=== PATIENT | male | born 1985 | race Two or more races ===

== ENCOUNTER → 2019-01-11 | Outpatient (CLI) | payer OTHER | END | disposition home or self-care (01) | LOC: CFH 08:55 | PROVIDERS: ATTEND Orthopaedic Surgery | DX: S43.432A Superior glenoid labrum lesion of left shoulder, initial encounter (principal); S43.431A Superior glenoid labrum lesion of right shoulder, initial encounter; X58.XXXA Exposure to other specified factors, initial encounter; Y93.89 Activity, other specified; Y92.89 Other specified places as the place of occurrence of the external cause; Y99.8 Other external cause status ==

== ENCOUNTER 2019-02-17 10:22 | Day surgery (SDC) | payer OTHER ==
[~2019-02-17] VITALS: Ht 188 cm; Wt 100.8 kg
[~2019-02-17 10:22] MED LIST: LIDOCAINE 1%-EPI 1:100K, 20ML ONE; NEOSPORIN OINT, 15GM ONE; No meds per pt.
[2019-02-17 11:19] VITALS: BP 115/80
[2019-02-17] MEDS ORDERED: FENTANYL PF 100 MCG/2ML ONE (13:31)
[2019-02-17] MEDS ORDERED: MIDAZOLAM 1 MG/ML, 2ML ONE (13:31)
[2019-02-17] MEDS ORDERED: LIDOCAINE 1%-EPI 1:100K, 20ML INFIL ONE (14:07)
[2019-02-17] MEDS ORDERED: CLINDAMYCIN 150 MG/ML, 6ML ONE (14:09)
[2019-02-17] MEDS ORDERED: OXYcodone 5 MG/5 ML ORAL.SOL UDC PO PRN (14:30)
[2019-02-17] MEDS ORDERED: MEPERIDINE/PF 25MG/0.5ML IVPush PRN (14:30)
[2019-02-17] MEDS ORDERED: PROMETHAZINE 25 MG/ML, 1ML IV PRN (14:30)
[2019-02-17] MEDS ORDERED: ONDANSETRON 2MG/ML, 2ML IV PRN (14:30)
[2019-02-17] MEDS ORDERED: HYDROmorphone 2 MG/ML, 1ML IVPush PRN (14:30)
[2019-02-17] MEDS ORDERED: ONDANSETRON ODT 8 MG PO PRN (14:30)
[2019-02-17] MEDS ORDERED: FENTANYL PF 100 MCG/2ML IV PRN (14:30)
[2019-02-17] MEDS ORDERED: DIAZEPAM 5 MG/ML, 2ML IVPush PRN (14:30)
[2019-02-17] MEDS ORDERED: ACETAMINOPHEN 325 MG TABLET PO PRN (14:30)
[2019-02-17] MEDS ORDERED: SUCCINYLCHOLINE 20 MG/ML, 10ML ONE (14:38)
[2019-02-17] MEDS ORDERED: NEOSTIGMINE 1 MG/ML, 10ML ONE (14:38)
[2019-02-17] MEDS ORDERED: ROCURONIUM 10MG/ML,5ML ONE (14:38)
[2019-02-17] MEDS ORDERED: PROPOFOL 10 MG/ML, 20ML ONE (14:38)
[2019-02-17] MEDS ORDERED: ONDANSETRON 2MG/ML, 2ML ONE (14:38)
[2019-02-17] MEDS ORDERED: GLYCOPYRROLATE 0.2MG/1ML, 5ML ONE (14:38)
[2019-02-17] MEDS ORDERED: CEFAZOLIN 1,000 MG ONE (14:38)
[2019-02-17] MEDS ORDERED: DEXAMETHASONE 4 MG/ML, 1ML ONE (14:38)
[2019-02-17] MEDS ORDERED: OXYcodone 5 MG/5 ML ORAL.SOL UDC ONE (15:50)
[2019-02-17] MEDS ORDERED: MEPERIDINE/PF 25MG/ML,1ML ONE (15:50)
== END 2019-02-17 17:35 | disposition home or self-care (01) ==
LOC: OUT 10:22
PROVIDERS: ATTEND Orthopaedic Surgery
DX: S43.432A Superior glenoid labrum lesion of left shoulder, initial encounter (principal); S46.012A Strain of muscle(s) and tendon(s) of the rotator cuff of left shoulder, initial encounter; M75.22 Bicipital tendinitis, left shoulder; M75.42 Impingement syndrome of left shoulder; M65.812 Other synovitis and tenosynovitis, left shoulder; M75.52 Bursitis of left shoulder; X58.XXXA Exposure to other specified factors, initial encounter; Y93.89 Activity, other specified; Y92.89 Other specified places as the place of occurrence of the external cause; Y99.8 Other external cause status; Z88.1 Allergy status to other antibiotic agents; Z88.0 Allergy status to penicillin
CPT/HCPCS: 24340; 29823; 29826; 29827; 64415; C1713; J0330; J0690; J1100; J2175; J2250; J2405; J2704; J2710; J3010; J3490

== ENCOUNTER → 2020-10-25 | Outpatient (CLI) | payer OTHER ==
[~2020-10-25] MED LIST changes: +ALBU2.5V11 NEB; +ALBU8.5H8 INH; +ATOR10TA9 PO; +IBUP-1902 PO; -LIDOCAINE 1%-EPI 1:100K, 20ML ONE; -NEOSPORIN OINT, 15GM ONE
== END | disposition home or self-care (01) ==
LOC: STAR 07:55
PROVIDERS: ATTEND Orthopaedic Surgery
DX: Z20.828 Contact with and (suspected) exposure to other viral communicable diseases (principal); M25.541 Pain in joints of right hand
CPT/HCPCS: 87635

== ENCOUNTER 2020-10-31 05:26 | Day surgery (SDC) | payer OTHER ==
[~2020-10-31] VITALS: Ht 188 cm; Wt 120.0 kg
[2020-10-31] MEDS ORDERED: CHLORHEXIDINE 15 ML UDC MM ONE (06:30)
[2020-10-31] MEDS ORDERED: LACTATED RINGERS 1,000 ML IV SCH (06:30)
[2020-10-31] MEDS ORDERED: LIDOCAINE-MPF 1%, 2ML INFIL ONE (06:30)
[2020-10-31] MEDS ORDERED: BUPIVACAINE/PF-EPI 0.5% 1:200K ONE (06:34)
[2020-10-31] MEDS ORDERED: FENTANYL PF 250 MCG/5ML ONE (06:55)
[2020-10-31] MEDS ORDERED: PROPOFOL 10 MG/ML, 20ML ONE (06:55)
[2020-10-31] MEDS ORDERED: MIDAZOLAM 1 MG/ML, 5ML ONE (06:55)
[2020-10-31] MEDS ORDERED: LIDOCAINE-MPF 2% ,5ML ONE (06:55)
[2020-10-31] MEDS ORDERED: MAGNESIUM SULFATE 1 GM/2 ML ONE (07:09)
[2020-10-31] MEDS ORDERED: LABETALOL 5MG/ML, 20ML ONE (07:09)
[2020-10-31] MEDS ORDERED: LIDOCAINE 1%, 20ML ONE (07:10)
[2020-10-31] MEDS ORDERED: LIDOCAINE/PF 1%, 30ML ONE (07:10)
[2020-10-31] MEDS ORDERED: ROCURONIUM 10 MG/ML,10ML ONE (07:15)
[2020-10-31] MEDS ORDERED: GLYCOPYRROLATE 0.2MG/1ML, 5ML ONE (07:15)
[2020-10-31] MEDS ORDERED: DEXAMETHASONE 4 MG/ML, 1ML ONE (07:15)
[2020-10-31] MEDS ORDERED: CLINDAMYCIN 150 MG/ML, 6ML ONE (07:25)
[2020-10-31] MEDS ORDERED: ALBUTEROL SULFATE 2.5 MG/3 ML NPPB PRN (08:30)
[2020-10-31] MEDS ORDERED: MEPERIDINE/PF 25MG/0.5ML IVPush PRN (08:30)
[2020-10-31] MEDS ORDERED: HYDROcodone/APAP 7.5-325MG/15ML UDC PO PRN (08:30)
[2020-10-31] MEDS ORDERED: METOCLOPRAMIDE 5 MG/ML, 2ML IVPush PRN (08:30)
[2020-10-31] MEDS ORDERED: hydrALAzine 20 MG/ML, 1ML IV PRN (08:30)
[2020-10-31] MEDS ORDERED: LORazepam 2 MG/ML, 1ML IVPush PRN (08:30)
[2020-10-31] MEDS ORDERED: EPHEDRINE 50 MG/ML, 1ML IM PRN (08:30)
[2020-10-31] MEDS ORDERED: FENTANYL PF 100 MCG/2ML IV PRN (08:30)
[2020-10-31] MEDS ORDERED: MIDAZOLAM 1 MG/ML, 2ML IV PRN (08:30)
[2020-10-31] MEDS ORDERED: ONDANSETRON 2MG/ML, 2ML IVPush PRN (08:30)
[2020-10-31] MEDS ORDERED: HYDROmorphone 1 MG/ML, 1ML INJ IVPush PRN (08:30)
[2020-10-31] MEDS ORDERED: METHOCARBAMOL 1,000 MG in DEXTROSE 5% 100 ML IV PRN (08:30)
[2020-10-31] MEDS ORDERED: EPHEDRINE 50 MG/ML, 1ML IVPush PRN (08:30)
[2020-10-31] MEDS ORDERED: DIAZEPAM 5 MG/ML, 2ML IVPush PRN (08:30)
[2020-10-31] MEDS ORDERED: LABETALOL 5MG/ML, 20ML IV PRN (08:30)
[2020-10-31] MEDS ORDERED: DIPHENHYDRAMINE 50 MG/ML, 1ML IVPush PRN (08:30)
[2020-10-31] MEDS ORDERED: HALOPERIDOL 5 MG/ML IV PRN (08:30)
[2020-10-31] MEDS ORDERED: OXYcodone 5 MG/5 ML ORAL.SOL UDC PO PRN (08:30)
== END 2020-10-31 11:25 | disposition home or self-care (01) ==
LOC: OR 05:26 → OUT 11:25
PROVIDERS: ATTEND Orthopaedic Surgery
DX: M25.731 Osteophyte, right wrist (principal); M65.4 Radial styloid tenosynovitis [de Quervain]; M19.041 Primary osteoarthritis, right hand; J45.909 Unspecified asthma, uncomplicated; E66.9 Obesity, unspecified; Z79.1 Long term (current) use of non-steroidal anti-inflammatories (NSAID); Z79.899 Other long term (current) drug therapy; Z88.0 Allergy status to penicillin; Z88.2 Allergy status to sulfonamides
CPT/HCPCS: 25000; 26210; J1100; J2250; J2704; J3010; J3475; J7120

== ENCOUNTER → 2021-03-19 | Outpatient (CLI) | payer OTHER | END | disposition home or self-care (01) | LOC: RAD 15:39 | PROVIDERS: ATTEND Orthopaedic Surgery | DX: M25.561 Pain in right knee (principal) ==

== ENCOUNTER → 2021-03-20 | Outpatient (CLI) | payer OTHER | END | disposition home or self-care (01) | LOC: CFH 12:46 | PROVIDERS: ATTEND Physician Assistant Surgical | DX: S72.424A Nondisplaced fracture of lateral condyle of right femur, initial encounter for closed fracture (principal); M25.461 Effusion, right knee; X58.XXXA Exposure to other specified factors, initial encounter; Y93.89 Activity, other specified; Y92.89 Other specified places as the place of occurrence of the external cause; Y99.8 Other external cause status ==

== ENCOUNTER → 2021-04-01 | Outpatient (CLI) | payer OTHER | END | disposition home or self-care (01) | LOC: STAR 13:54 | PROVIDERS: ATTEND Orthopaedic Surgery | DX: Z20.822 Contact with and (suspected) exposure to COVID-19 (principal); S83.511A Sprain of anterior cruciate ligament of right knee, initial encounter; X58.XXXA Exposure to other specified factors, initial encounter; Y93.89 Activity, other specified; Y92.89 Other specified places as the place of occurrence of the external cause; Y99.8 Other external cause status | CPT/HCPCS: U0005; U0003 ==

== ENCOUNTER 2021-04-05 06:04 | Day surgery (SDC) | payer OTHER ==
[~2021-04-05] VITALS: Ht 188 cm; Wt 119.0 kg
[2021-04-05 07:04] VITALS: BP 123/83
[2021-04-05] MEDS ORDERED: CHLORHEXIDINE 15 ML UDC PO ONE (07:30)
[2021-04-05] MEDS ORDERED: LACTATED RINGERS 1,000 ML IV SCH (07:30)
[2021-04-05] MEDS ORDERED: PROPOFOL 10 MG/ML, 20ML ONE ×2 (08:50→12:19)
[2021-04-05] MEDS ORDERED: MIDAZOLAM 1 MG/ML, 2ML ONE (08:50)
[2021-04-05] MEDS ORDERED: ONDANSETRON 2MG/ML, 2ML ONE ×2 (08:50→12:19)
[2021-04-05] MEDS ORDERED: FENTANYL PF 100 MCG/2ML ONE ×4 (08:50→12:19)
[2021-04-05] MEDS ORDERED: DEXAMETHASONE 4 MG/ML, 1ML ONE ×2 (08:50→12:19)
[2021-04-05] MEDS ORDERED: CEFAZOLIN 1,000 MG ONE ×2 (08:50→12:19)
[2021-04-05] MEDS ORDERED: LIDOCAINE/PF 1%, 30ML ONE (08:56)
[2021-04-05] MEDS ORDERED: EPINEPHRINE 1 MG/ML, 1ML ONE (08:56)
[2021-04-05] MEDS ORDERED: LIDOCAINE 1%-EPI 1:100K, 30ML INFIL ONE (09:40)
[2021-04-05] MEDS ORDERED: PROMETHAZINE 25 MG/ML, 1ML IVPush PRN (10:30)
[2021-04-05] MEDS ORDERED: HYDROcodone/APAP 7.5-325MG/15ML UDC PO PRN (10:30)
[2021-04-05] MEDS ORDERED: ONDANSETRON 2MG/ML, 2ML IVPush PRN (10:30)
[2021-04-05] MEDS ORDERED: ROPIvacaine/PF 0.5%, 30 ML ONE (10:54)
[2021-04-05] MEDS ORDERED: MEPERIDINE/PF 25MG/ML,1ML ONE ×2 (11:07→11:35)
[2021-04-05] MEDS: MEPERIDINE/PF 25MG/0.5ML IVPush PRN ×2 (11:11→11:37)
[2021-04-05] MEDS ORDERED: ACETAMINOPHEN 650 MG/20.3 ML UDC ONE (11:28)
[2021-04-05] MEDS ORDERED: OXYcodone 5 MG/5 ML ORAL.SOL UDC ONE (11:28)
[2021-04-05] MEDS: FENTANYL PF 100 MCG/2ML IV PRN ×2 (11:30→11:40)
[2021-04-05] MEDS ORDERED: HYDROcodone/APAP 7.5-325MG/15ML UDC ONE (11:31)
[2021-04-05] MEDS: HYDROmorphone 1 MG/ML, 1ML INJ IVPush PRN ×2 (12:01→12:14)
[2021-04-05] MEDS ORDERED: HYDROmorphone 1 MG/ML, 1ML INJ ONE (12:01)
[2021-04-05] MEDS ORDERED: MIDAZOLAM 1 MG/ML, 5ML ONE (12:19)
[2021-04-05] MEDS ORDERED: KETOROLAC 30 MG/1 ML ONE (12:19)
== END 2021-04-05 13:45 | disposition home or self-care (01) ==
LOC: OUT 06:04
PROVIDERS: ATTEND Orthopaedic Surgery
DX: S83.511A Sprain of anterior cruciate ligament of right knee, initial encounter (principal); S83.241A Other tear of medial meniscus, current injury, right knee, initial encounter; M65.861 Other synovitis and tenosynovitis, right lower leg; J45.909 Unspecified asthma, uncomplicated; Z79.1 Long term (current) use of non-steroidal anti-inflammatories (NSAID); Z88.0 Allergy status to penicillin; Z88.2 Allergy status to sulfonamides; W51.XXXA Accidental striking against or bumped into by another person, initial encounter; Y93.89 Activity, other specified; Y92.89 Other specified places as the place of occurrence of the external cause; Y99.8 Other external cause status
CPT/HCPCS: 29881; 29888; 64447; 73560; C1713; C1762; J0171; J0690; J1100; J1170; J1885; J2175; J2250; J2405; J2704; J2795; J3010; J7120; 76000